=== PATIENT | male | born 1950 | race African-American/Black ===

== ENCOUNTER 2016-11-07 13:10 | Day surgery (SDC) | payer MEDICARE, OTHER ==
--- NOTE | ~2016-11-07 | EGD ---
EGD REPORT [facility] [address] [place]. [address] NAME: MADI AYALA : 52 STATUS : REG [facility] [place] PAT#: [id number] AGE: 66 ADM/REG DATE : 11/07/16 MR#: [id number] REPORT SERV DATE: 11/07/16 DICTATED BY: YONI BLAKE DATE: 11/07/16 REPORT STATUS : Draft TRANSCRIBED BY: [facility] DATE: 11/07/16 Endoscopy Center Patient Name: Madi Ayala Date of : 1950 Attending MD: YONI BLAKE MD Procedure Date No Time: 11/07/2016 Procedure: Upper GI endoscopy Indications: For therapy of Fischer's esophagus Medicines: Propofol total dose 250 mg IV Complications: No immediate complications. Procedure: After obtaining informed consent, the endoscope was passed under direct vision. Throughout the procedure, the patient's blood pressure, pulse, and oxygen saturations were monitored continuously. The GIF [id number] was introduced through the mouth, and advanced to the second part of duodenum. The upper GI endoscopy was accomplished with ease. The patient tolerated the procedure well. Findings: The ampulla, duodenal bulb, first part of the duodenum and 2nd part of the duodenum were normal. The cardia, gastric fundus, gastric body and gastric antrum were normal. The esophagus and gastroesophageal junction were examined with white light. There were esophageal mucosal changes secondary to established long-segment Fischer's disease, extending from the upper extent of the gastric folds which were at 28 cm from the incisors to the Z-line which was at 38 cm from the incisors. No visible abnormalities were present. The maximum longitudinal extent of these esophageal mucosal changes was 8 cm in length. The esophagus and gastroesophageal junction were examined with white lightClassification] 38cms . . 8cmd. Circumferential radiofrequency ablation of Fischer's esophagus was performed, using the listedplaces 360 catheter and balloon-based endoscopic ablation system. With the endoscope in place, the position and extent of the Fischer's mucosa and the anatomic landmarks were noted. . . A guidewire was passed down the biopsy channel of the endoscope and the endoscope was then withdrawn from the mouth leaving the guidewire in place. The shaft of a 33.7 mm sizing balloon catheter was passed transorally over the guidewire into the esophagus and positioned . The balloon was automatically inflated with the energy generator and the inner diameter measurement of the esophagus was obtained. This measurement step was repeated in 4 . Measurement Endpoint]. . The sizing balloon catheter was withdrawn. Size Ablation Catheter (mm)] radiofrequency ablation balloon catheter was then selected and passed transorally over the guidewire into the EGD REPORT [address] [place]. [address] NAME: MADI AYALA : 52 STATUS : REG [facility] [place] PAT#: [id number] AGE: 66 ADM/REG DATE : 11/07/16 MR#: [id number] REPORT SERV DATE: 11/07/16 DICTATED BY: YONI BLAKE DATE: 11/07/16 REPORT STATUS : Draft TRANSCRIBED BY: [employer] DATE: 11/07/16 esophagus. The endoscope was introduced in a izet-li-soth manner with the ablation catheter. The balloon ablation catheter was positioned under direct visualization so that the proximal edge of the electrode was . The balloon was automatically inflated and energy was applied . The balloon electrode was moved 3 cm distally, so that the proximal edge of the electrode was aligned with the distal edge of the ablation zone. The process of balloon inflation and ablation was repeated until the top of the gastric folds was reached. The ablation catheter and guidewire were removed and the balloon was cleaned. The ablation zone was then cleaned of overlying coagulative debris using irrigation and suction via the endoscope and a cleaning cap. The guidewire was reinserted and then the ablation catheter was reintroduced into the esophagus over the wire. The ablation catheter was positioned under direct visualization so that the proximal edge of the electrode was at the proximal edge of the ablation zone. Reinflation and a second round of ablation was performed to re-treat the Fischer's epithelium already treated with the first round of ablation. The ablation catheter and guidewire were then removed. The areas of the esophagus where Fischer's mucosa had been ablated were then carefully examined with the endoscope. . Impression: - Normal ampulla, duodenal bulb, first part of the duodenum and 2nd part of the duodenum. - Normal cardia, gastric fundus, gastric body and antrum. 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 Treated with radiofrequency ablation. Recommendation: - Discharge patient to home (ambulatory). - Full liquid diet today. RegularFrom Tomorrow Omeprazole 40 mg twice daily x 15 days Gi Cocktail 30 ml po three times per day Prn Lortab 7.25/325 1 tab po three times Prn 12 tabs given - Continue present medications. - Return to GI clinic in 2 weeks. Procedure Code(s): --- Professional --- 82910, Esophagogastroduodenoscopy, flexible, transoral; with ablation of tumor(s), polyp(s), or other lesion(s) (includes pre- and post-dilation and guide wire passage, when performed) Diagnosis Code(s): --- Professional --- K22.70, Fischer's esophagus without dysplasia EGD REPORT [address] [address] NAME: MADI AYALA : 52 STATUS : REG [facility] [place] PAT#: [id number] AGE: 66 ADM/REG DATE : 11/07/16 MR#: [id number] REPORT SERV DATE: 11/07/16 DICTATED BY: YONI BLAKE DATE: 11/07/16 REPORT STATUS : Draft TRANSCRIBED BY: [employer] DATE: 11/07/16 CPT copyright 2013 [employer]. All rights reserved. The codes documented in this report are preliminary and upon artist scientific review may be revised to meet current compliance requirements. Yoni Blake MD YONI BLAKE MD 11/07/2016 2:10 PM This report has been signed electronically. Number of Addenda: 0 Note Initiated On: 11/07/2016 1:14 PM Scope Withdrawal Time 0 hours 0 minutes 0 seconds [address] [place] [address]
[~2016-11-07 13:10] MED LIST: ASAB PO; AZOPT OPH; COREG12 PO; CRESTOR20 MG PO; DRAMAMINE25 MG PO; ISORDTITRA PO; KLOR-CON M1010 MEQ PO; LUMIGAN OPH; MICRO-K10 MEQ PO; MICROZIDE PO; MULTIPLE VIT PO; NEUR300 PO; NITROQUICK0.4 MG SL; PRILOSEC40 MG PO; RAN500 PO; REG PO; TRAVATAN OPH; TYLENOL 8 HR650 MG PO; X5 PO; XYZAL5 MG PO; ZANTAC150 MG PO; ZOCOR40 PO
== END 2016-11-07 23:59 | disposition home or self-care (01) ==
LOC: DMU 13:10
PROVIDERS: Internal Medicine Gastroenterology
PROC: 0D558ZZ Destruction of Esophagus, Via Natural or Artificial Opening Endoscopic (ICD-10-PCS; principal; 2016-11-07 13:00)
DX: K22.70 Barrett's esophagus without dysplasia (principal); K21.9 Gastro-esophageal reflux disease without esophagitis; I10 Essential (primary) hypertension; E11.9 Type 2 diabetes mellitus without complications; I48.91 Unspecified atrial fibrillation; M06.9 Rheumatoid arthritis, unspecified; G43.909 Migraine, unspecified, not intractable, without status migrainosus; E78.00 Pure hypercholesterolemia, unspecified; Z85.01 Personal history of malignant neoplasm of esophagus; Z98.890 Other specified postprocedural states
CPT/HCPCS: 82962; C1725; C1769

== ENCOUNTER 2017-02-15 12:31 | Day surgery (SDC) | payer MEDICARE, OTHER | END 2017-02-15 23:59 | disposition home or self-care (01) | LOC: DMU 12:31 | DX: K22.70 Barrett's esophagus without dysplasia (principal); H40.9 Unspecified glaucoma; Z53.8 Procedure and treatment not carried out for other reasons; Z79.899 Other long term (current) drug therapy | CPT/HCPCS: 82962 ==